=== PATIENT | male | born 1960 | race Hispanic/Latino ===

== ENCOUNTER 2019-01-18 19:17 | Emergency (ER) | payer OTHER ==
--- NOTE | 2019-01-18 22:43 | RAD ---
FExam: Chest 2 views HISTORY:Cough Comparison: None FINDINGS: Lungs: Patchy bilateral perihilar opacification Cardiac silhouette:Mildly enlarged Pulmonary vessels: Mild engorgement Pleural Spaces: Clear Pneumothorax: None Osseous abnormalities: None of acuity. IMPRESSION: Perihilar opacities may relate to edema from mild CHF, versus bronchiolitis. Correlate cl inically. Imaging follow-up may also be obtained.
== END 2019-01-18 23:31 | disposition home or self-care (01) ==
LOC: ERS 19:17 → EDBD 19:17 → ERS 23:31
DX: J06.9 Acute upper respiratory infection, unspecified (principal); I10 Essential (primary) hypertension
CPT/HCPCS: 71046; 94640; J7620

== ENCOUNTER 2021-02-23 19:10 | Inpatient (IN) | payer SELFPAY ==
[~2021-02-23 19:10] MED LIST: Iopamidol-370 76% 500 ML 1 ML ONE
[2021-02-23] MEDS ORDERED: hydrALAZINE 20 MG/ML VIAL ONE (20:03)
[2021-02-23 20:08] LABS: #Eosinphils 0.1 thou/uL (0.0-0.7); #Lymphocytes 1.5 thou/uL (1.20-3.40); #Monocytes 0.5 thou/uL (0.11-0.59); #Neutrophils 3.8 thou/uL (1.40-6.50); %Basophils 0.1 % (0.0-1.0); %Eosinophils 0.9 % (0.0-10.0); %Lymphocytes 25.2 % (21.0-51.0); %Monocytes 7.7 % (0.0-10.0); %Neutrophils 66.1 % (42.0-75.0); Hemoglobin 14.4 g/dL (14.0-18.0); Mean Corpuscular HGB CONC 33.7 g/dL (32.0-36.0); Mean Corpuscular Hemoglobin 30.8 pg (27.0-31.0); Mean Corpuscular Volume 91.4 fL (78.0-98.0); Mean Platelet Volume 7.8 fL (7.4-10.4); Platelet Count 197 thou/uL (130-400); RBC Distribution Width 12.9 % (11.5-14.5); Red Blood Cell (RBC) Count 4.68 mill/uL (4.70-6.10); White Blood Cell (WBC) Count 5.8 thou/uL (4.8-10.8)
[2021-02-23 20:35] LABS: ALT (SGPT) 30 U/L (8-55); AST (SGOT) 21 U/L (5-34); Albumin 3.7 g/dL (3.4-4.8); Alkaline Phosphatase 162 U/L (40-110); Anion Gap 12 mmol/L (10-20); BUN (Urea Nitrogen) 20 mg/dL (8.4-25.7); Bilirubin, Total 0.9 mg/dL (0.2-1.2); Calc. Creatinine Clearance 0 mL/min (70-130); Calcium 8.9 mg/dL (7.8-10.44); Carbon Dioxide 27 mmol/L (23-31); Chloride 106 mmol/L (98-107); Globulin 3.8 g/dL (2.4-3.5); Glucose 109 mg/dL (80-115); Potassium 3.9 mmol/L (3.5-5.1); Protein, Total 7.5 g/dL (5.8-8.1); Sodium 141 mmol/L (136-145)
[2021-02-23] MEDS ORDERED: Aspirin Chewable 81 MG TAB ONE (21:27)
[2021-02-23] MEDS ORDERED: Aspirin 325 MG TAB ONE (21:32)
[2021-02-23] MEDS ORDERED: hydrALAZINE 20 MG/ML VIAL SLOW IVP PRN (21:39)
[2021-02-23] MEDS ORDERED: Acetaminophen 325 MG TAB PO PRN (21:39)
[2021-02-23] MEDS ORDERED: Ondansetron PF 4 MG/2 ML Vial IVP PRN (21:39)
[2021-02-23] MEDS ORDERED: Ondansetron ODT 4 MG TAB PO PRN (21:39)
[2021-02-23 23:58] LABS: Troponin I 0.367 ng/mL (< 0.028)
[2021-02-24 01:08] LABS: Bacteria/HPF None Seen HPF (None Seen); Bilirubin Negative (Negative); Blood, Urine Negative (Negative); Clarity Clear (Clear); Glucose, Urine (Dipstick) Normal (Negative); Ketone, Urine 20 mg/dL (Negative); Leukocyte Negative Leu/uL (Negative); Nitrite Negative (Negative); Protein, Urine (Dipstick) 10 mg/dL (Neg-Trace); Squamous Epithelial None Seen HPF (0-3); Urobilinogen Normal mg/dL (Less than 2); pH, Urine 7.5 (5.0-9.0)
[2021-02-24 01:13] LABS: Specific Gravity, Urine 1.049 (1.002-1.036)
[2021-02-24 01:14] LABS: Urine Culture Reflex Yes Yes
[2021-02-24 01:15] LABS: Amphetamine Not Detected (NotDetected); Barbiturates Screen Not Detected (NotDetected); Benzodiazepine Screen Not Detected (NotDetected); Cocaine Metabolite Screen Not Detected (NotDetected); Medtox Control Line Valid? VALID (VALID); Medtox Reader # READER 4; Methadone Not Detected (NotDetected); Methamphetamine Not Detected (NotDetected); Opiate Screen Not Detected (NotDetected); Oxycodone Screen Not Detected (NotDetected); Phencyclidine (PCP) Not Detected (NotDetected); THC/Cannabinoid Screen Not Detected (NotDetected); Tricyclic Screen Not Detected (NotDetected)
[2021-02-24 02:02] VITALS: BMI 29.0
[2021-02-24 02:14] LABS: #Lymphocytes 0.9 thou/uL (1.20-3.40); #Monocytes 0.3 thou/uL (0.11-0.59); #Neutrophils 7.3 thou/uL (1.40-6.50); %Basophils 0.2 % (0.0-1.0); %Eosinophils 0.1 % (0.0-10.0); %Lymphocytes 10.8 % (21.0-51.0); %Monocytes 3.7 % (0.0-10.0); %Neutrophils 85.2 % (42.0-75.0); Hemoglobin 14.3 g/dL (14.0-18.0); Mean Corpuscular Hemoglobin 31.1 pg (27.0-31.0); Mean Corpuscular Volume 91.5 fL (78.0-98.0); Mean Platelet Volume 7.9 fL (7.4-10.4); Platelet Count 198 thou/uL (130-400); Red Blood Cell (RBC) Count 4.59 mill/uL (4.70-6.10); White Blood Cell (WBC) Count 8.6 thou/uL (4.8-10.8)
[2021-02-24 02:39] LABS: Anion Gap 14 mmol/L (10-20); BUN (Urea Nitrogen) 21 mg/dL (8.4-25.7); Calc. Creatinine Clearance 121 mL/min (70-130); Calcium 9.4 mg/dL (7.8-10.44); Carbon Dioxide 24 mmol/L (23-31); Cardiac Risk 4.8 (Less than 4.5); Chloride 105 mmol/L (98-107); Cholesterol 220 mg/dl (< 200 Desired); Glucose 117 mg/dL (80-115); HDL Cholesterol 46 mg/dL (>60 Neg Risk); LDL Cholesterol, Calculated 144 mg/dL; Potassium 3.5 mmol/L (3.5-5.1); Sodium 139 mmol/L (136-145); Triglycerides 149 mg/dL (Less than 150)
[2021-02-24 02:44] LABS: Troponin I 0.346 ng/mL (< 0.028)
[2021-02-24] MEDS ORDERED: Enoxaparin Sodium 40 MG/0.4 ML SYRINGE SC SCH ×2 (09:00)
[2021-02-24] MEDS ORDERED: Enoxaparin Sodium 80 MG/0.8 ML SYRINGE SC SCH (09:00)
[2021-02-24] MEDS: Aspirin 81 mg Enteric Coated Tablet PO SCH (09:11)
[2021-02-24] MEDS: Enoxaparin Sodium 40 MG/0.4 ML SYRINGE SC SCH (09:11)
[2021-02-24 14:25] LABS: SARS-CoV-2 PCR by NAA Not Detected (NotDetected)
[2021-02-24] MEDS: Atorvastatin Calcium 40 MG TAB PO SCH (20:53)
[2021-02-25] MEDS: Aspirin 81 mg Enteric Coated Tablet PO SCH (08:04)
[2021-02-25] MEDS: Enoxaparin Sodium 40 MG/0.4 ML SYRINGE SC SCH (08:04)
[2021-02-25] MEDS ORDERED: Amlodipine 5 MG TAB PO SCH ×2 (09:00→10:45)
[2021-02-25] MEDS ORDERED: Valsartan 80 MG TAB PO SCH (09:00)
[2021-02-25 11:19] LABS: Hemoglobin A1c 5.1 % (4.0-6.0)
[2021-02-25] MEDS ORDERED: Lisinopril/Hydrochlorothiazide 20 mg/12.5 mg Tablet PO SCH (14:15)
[2021-02-25] MEDS: Atorvastatin Calcium 40 MG TAB PO SCH (20:32)
[2021-02-26] MEDS: Aspirin 81 mg Enteric Coated Tablet PO SCH (08:10)
[2021-02-26] MEDS: Amlodipine 5 MG TAB PO SCH (08:10)
[2021-02-26] MEDS: Enoxaparin Sodium 40 MG/0.4 ML SYRINGE SC SCH (08:10)
[2021-02-26] MEDS ORDERED: Lisinopril/Hydrochlorothiazide 20 mg/12.5 mg Tablet PO SCH (09:00)
[2021-02-26] MEDS ORDERED: Lisinopril/Hydrochlorothiazide 10 mg/12.5 mg Tablet PO SCH (09:00)
[2021-02-26] MEDS ORDERED: Lisinopril 20 MG TAB PO SCH (10:15)
[2021-02-26] MEDS: hydrALAZINE 25 MG TAB PO SCH ×2 (15:27→21:01)
[2021-02-26] MEDS: Atorvastatin Calcium 40 MG TAB PO SCH (21:01)
[2021-02-27] MEDS: hydrALAZINE 25 MG TAB PO SCH (08:18)
[2021-02-27] MEDS: Aspirin 81 mg Enteric Coated Tablet PO SCH (08:18)
[2021-02-27] MEDS: Enoxaparin Sodium 40 MG/0.4 ML SYRINGE SC SCH (08:18)
[2021-02-27] MEDS: Amlodipine 5 MG TAB PO SCH (08:18)
[2021-02-27] MEDS ORDERED: Hydrochlorothiazide 25 MG TAB PO SCH (09:00)
[2021-02-27] MEDS ORDERED: Lisinopril 20 MG TAB PO SCH (09:00)
[2021-02-27] MEDS ORDERED: hydrALAZINE 25 MG TAB PO SCH ×2 (09:30→15:00)
[2021-02-27 11:34] VITALS: TEMP 98.2
[2021-02-27 15:26] VITALS: BP 151/70
== END 2021-02-27 19:33 | disposition home or self-care (01) | DRG 65 ==
LOC: ERS 19:10 → MERGE 21:20 → 2SE 21:20
PROVIDERS: ADMIT Student in an Organized Health Care Education/Training Program; ATTEND Internal Medicine
DX: I63.512 Cerebral infarction due to unspecified occlusion or stenosis of left middle cerebral artery (principal); I16.1 Hypertensive emergency; G81.91 Hemiplegia, unspecified affecting right dominant side; G93.49 Other encephalopathy; I24.8 Other forms of acute ischemic heart disease; I63.522 Cerebral infarction due to unspecified occlusion or stenosis of left anterior cerebral artery; I10 Essential (primary) hypertension; Z20.822 Contact with and (suspected) exposure to COVID-19; F41.9 Anxiety disorder, unspecified; R29.706 NIHSS score 6; R47.01 Aphasia; E78.00 Pure hypercholesterolemia, unspecified; Z91.14 Patient's other noncompliance with medication regimen
CPT/HCPCS: 36415; 36416; 70450; 70496; 70498; 70551; 80048; 80053; 80061; 80306; 81001; 82553; 83036; 83605; 83880; 84484; 85025; 87086; 87635; 93005; 93306; 96374; J0360; J1650; Q9967; U0003; U0005

== ENCOUNTER 2021-02-28 21:08 | Inpatient (IN) | payer OTHER, SELFPAY ==
[2021-02-28 22:01] LABS: #Eosinphils 0.1 thou/uL (0.0-0.7); #Lymphocytes 1.6 thou/uL (1.20-3.40); #Monocytes 0.9 thou/uL (0.11-0.59); #Neutrophils 8.6 thou/uL (1.40-6.50); %Eosinophils 0.8 % (0.0-10.0); %Lymphocytes 14.6 % (21.0-51.0); %Monocytes 8.2 % (0.0-10.0); %Neutrophils 76.3 % (42.0-75.0); Hemoglobin 15.8 g/dL (14.0-18.0); Mean Corpuscular HGB CONC 33.7 g/dL (32.0-36.0); Mean Corpuscular Hemoglobin 30.9 pg (27.0-31.0); Mean Corpuscular Volume 91.8 fL (78.0-98.0); Mean Platelet Volume 8.4 fL (7.4-10.4); Platelet Count 227 thou/uL (130-400); RBC Distribution Width 13.2 % (11.5-14.5); White Blood Cell (WBC) Count 11.2 thou/uL (4.8-10.8)
[2021-02-28 22:33] LABS: ALT (SGPT) 43 U/L (8-55); Albumin 4.1 g/dL (3.4-4.8); Alkaline Phosphatase 160 U/L (40-110); Anion Gap 18 mmol/L (10-20); BUN (Urea Nitrogen) 50 mg/dL (8.4-25.7); Calc. Creatinine Clearance 0 mL/min (70-130); Calcium 9.6 mg/dL (7.8-10.44); Carbon Dioxide 20 mmol/L (23-31); Chloride 102 mmol/L (98-107); Globulin 4.2 g/dL (2.4-3.5); Glucose 114 mg/dL (80-115); Potassium 3.8 mmol/L (3.5-5.1); Protein, Total 8.3 g/dL (5.8-8.1); Sodium 136 mmol/L (136-145)
[2021-02-28] MEDS ORDERED: Aspirin 325 MG TAB ONE (23:02)
[2021-02-28 23:41] LABS: AST (SGOT) 32 U/L (5-34)
[2021-03-01] MEDS ORDERED: Enoxaparin Sodium 80 MG/0.8 ML SYRINGE ONE (00:33)
[2021-03-01] MEDS ORDERED: Ondansetron PF 4 MG/2 ML Vial IVP PRN (01:00)
[2021-03-01] MEDS ORDERED: Ondansetron ODT 4 MG TAB SL PRN (01:00)
[2021-03-01 02:02] VITALS: BMI 25.5
[2021-03-01 02:07] LABS: Troponin I 5.151 ng/mL (< 0.028)
[2021-03-01] MEDS ORDERED: Acetaminophen 325 MG TAB PO PRN (03:17)
[2021-03-01 05:26] LABS: #Lymphocytes 0.9 thou/uL (1.20-3.40); #Monocytes 0.7 thou/uL (0.11-0.59); #Neutrophils 7.8 thou/uL (1.40-6.50); %Eosinophils 0.3 % (0.0-10.0); %Lymphocytes 9.3 % (21.0-51.0); %Monocytes 7.2 % (0.0-10.0); %Neutrophils 83.1 % (42.0-75.0); Hemoglobin 14.6 g/dL (14.0-18.0); Mean Corpuscular Hemoglobin 30.3 pg (27.0-31.0); Mean Corpuscular Volume 91.7 fL (78.0-98.0); Mean Platelet Volume 8.5 fL (7.4-10.4); Platelet Count 209 thou/uL (130-400); RBC Distribution Width 13.4 % (11.5-14.5); Red Blood Cell (RBC) Count 4.81 mill/uL (4.70-6.10); White Blood Cell (WBC) Count 9.4 thou/uL (4.8-10.8)
[2021-03-01 06:42] LABS: Anion Gap 18 mmol/L (10-20); BUN (Urea Nitrogen) 60 mg/dL (8.4-25.7); Calc. Creatinine Clearance 33 mL/min (70-130); Calcium 9.4 mg/dL (7.8-10.44); Carbon Dioxide 22 mmol/L (23-31); Chloride 103 mmol/L (98-107); Glucose 114 mg/dL (80-115); Sodium 139 mmol/L (136-145)
[2021-03-01 09:02] LABS: Critical Call Chem Troponin I RESULT DECREASING; Troponin I 4.521 ng/mL (< 0.028)
[2021-03-01] MEDS: Aspirin 81 mg Enteric Coated Tablet PO SCH (09:03)
[2021-03-01 10:20] LABS: Bacteria/HPF None Seen HPF (None Seen); Bilirubin Negative (Negative); Blood, Urine Negative (Negative); Clarity Turbid (Clear); Glucose, Urine (Dipstick) Normal (Negative); Ketone, Urine Negative (Negative); Leukocyte Negative Leu/uL (Negative); Nitrite Negative (Negative); Protein, Urine (Dipstick) 20 mg/dL (Neg-Trace); RBC/HPF 0-3 HPF (0-3); Specific Gravity, Urine 1.019 (1.002-1.036); Squamous Epithelial None Seen HPF (0-3); Urobilinogen Normal mg/dL (Less than 2); WBC/HPF 0-3 HPF (0-3)
[2021-03-01 10:22] LABS: Urine Culture Reflex No No
[2021-03-01] MEDS: Atorvastatin Calcium 40 MG TAB PO SCH (22:02)
[2021-03-02 05:51] LABS: #Eosinphils 0.1 thou/uL (0.0-0.7); #Lymphocytes 1.9 thou/uL (1.20-3.40); #Monocytes 0.8 thou/uL (0.11-0.59); #Neutrophils 6.4 thou/uL (1.40-6.50); %Basophils 0.4 % (0.0-1.0); %Lymphocytes 20.5 % (21.0-51.0); %Monocytes 8.8 % (0.0-10.0); %Neutrophils 69.3 % (42.0-75.0); Hemoglobin 16.4 g/dL (14.0-18.0); Mean Corpuscular HGB CONC 31.6 g/dL (32.0-36.0); Mean Corpuscular Hemoglobin 29.5 pg (27.0-31.0); Mean Corpuscular Volume 93.4 fL (78.0-98.0); Mean Platelet Volume 8.7 fL (7.4-10.4); Platelet Count 198 thou/uL (130-400); RBC Distribution Width 13.7 % (11.5-14.5); Red Blood Cell (RBC) Count 5.55 mill/uL (4.70-6.10); White Blood Cell (WBC) Count 9.2 thou/uL (4.8-10.8)
[2021-03-02] MEDS: hydrALAZINE 20 MG/ML VIAL SLOW IVP PRN (07:46)
[2021-03-02] MEDS: Aspirin 81 mg Enteric Coated Tablet PO SCH (07:49)
[2021-03-02] MEDS: Clopidogrel Bisulfate 75 MG TAB PO SCH (07:49)
[2021-03-02 11:07] LABS: Calcium 10.1 mg/dL (7.8-10.44); Chloride 103 mmol/L (98-107); Glucose 120 mg/dL (80-115); Potassium 4.4 mmol/L (3.5-5.1); Sodium 142 mmol/L (136-145)
[2021-03-02 11:09] LABS: Anion Gap 12 mmol/L (10-20); Carbon Dioxide 31 mmol/L (23-31)
[2021-03-02 11:12] LABS: BUN (Urea Nitrogen) 63 mg/dL (8.4-25.7)
[2021-03-02 11:46] LABS: Calc. Creatinine Clearance 76 mL/min (70-130)
[2021-03-02] MEDS: Atorvastatin Calcium 40 MG TAB PO SCH (21:51)
[2021-03-03] MEDS: Ondansetron PF 4 MG/2 ML Vial IVP PRN ×2 (02:44→20:29)
[2021-03-03 05:34] LABS: #Lymphocytes 1.3 thou/uL (1.20-3.40); #Monocytes 0.8 thou/uL (0.11-0.59); #Neutrophils 7.8 thou/uL (1.40-6.50); %Basophils 0.3 % (0.0-1.0); %Eosinophils 0.5 % (0.0-10.0); %Lymphocytes 13.1 % (21.0-51.0); %Monocytes 7.7 % (0.0-10.0); %Neutrophils 78.4 % (42.0-75.0); Hemoglobin 15.5 g/dL (14.0-18.0); Mean Corpuscular HGB CONC 31.5 g/dL (32.0-36.0); Mean Corpuscular Volume 95.4 fL (78.0-98.0); Mean Platelet Volume 9.2 fL (7.4-10.4); Platelet Count 180 thou/uL (130-400); RBC Distribution Width 13.6 % (11.5-14.5); Red Blood Cell (RBC) Count 5.16 mill/uL (4.70-6.10); White Blood Cell (WBC) Count 9.9 thou/uL (4.8-10.8)
[2021-03-03 05:52] LABS: Anion Gap 11 mmol/L (10-20); BUN (Urea Nitrogen) 53 mg/dL (8.4-25.7); Calc. Creatinine Clearance 87 mL/min (70-130); Calcium 10.2 mg/dL (7.8-10.44); Carbon Dioxide 31 mmol/L (23-31); Chloride 104 mmol/L (98-107); Glucose 116 mg/dL (80-115); Potassium 4.3 mmol/L (3.5-5.1); Sodium 142 mmol/L (136-145)
[2021-03-03] MEDS: Aspirin 81 mg Enteric Coated Tablet PO SCH (09:06)
[2021-03-03] MEDS: Clopidogrel Bisulfate 75 MG TAB PO SCH (09:06)
[2021-03-03] MEDS ORDERED: Amlodipine 5 MG TAB PO SCH (12:45)
[2021-03-03] MEDS: hydrALAZINE 20 MG/ML VIAL SLOW IVP PRN (17:33)
[2021-03-03] MEDS: Atorvastatin Calcium 40 MG TAB PO SCH (20:29)
[2021-03-03] MEDS: Docusate 100 MG CAP PO SCH (20:29)
[2021-03-03] MEDS ORDERED: Lorazepam 2 MG/ML VIAL SLOW IVP SCH (21:15)
[2021-03-04] MEDS: Docusate 100 MG CAP PO SCH ×2 (08:39→20:21)
[2021-03-04] MEDS: Clopidogrel Bisulfate 75 MG TAB PO SCH (08:39)
[2021-03-04] MEDS: Aspirin 81 mg Enteric Coated Tablet PO SCH (08:39)
[2021-03-04] MEDS ORDERED: Amlodipine 5 MG TAB PO SCH (09:00)
[2021-03-04] MEDS ORDERED: Enoxaparin Sodium 40 MG/0.4 ML SYRINGE SC SCH (10:15)
[2021-03-04] MEDS: Atorvastatin Calcium 40 MG TAB PO SCH (20:21)
[2021-03-04] MEDS: Amlodipine 5 MG TAB PO SCH (20:21)
[2021-03-04] MEDS: hydrALAZINE 20 MG/ML VIAL SLOW IVP PRN (23:40)
[2021-03-05] MEDS ORDERED: Lorazepam 2 MG/ML VIAL SLOW IVP SCH (00:45)
[2021-03-05] MEDS: Clopidogrel Bisulfate 75 MG TAB PO SCH (08:31)
[2021-03-05] MEDS: Polyethylene Glycol 3350 17 GM Packet PER TUBE SCH (08:31)
[2021-03-05] MEDS: Enoxaparin Sodium 40 MG/0.4 ML SYRINGE SC SCH (08:31)
[2021-03-05] MEDS: Docusate 100 MG CAP PO SCH ×2 (08:31→21:18)
[2021-03-05] MEDS: Amlodipine 5 MG TAB PO SCH ×2 (08:31→21:18)
[2021-03-05] MEDS: Aspirin 81 mg Enteric Coated Tablet PO SCH (08:31)
[2021-03-05] MEDS ORDERED: PARoxetine 20 MG TAB PO SCH (09:00)
[2021-03-05] MEDS ORDERED: Fleet Enema 133 ML BOT PR PRN (16:59)
[2021-03-05] MEDS ORDERED: Bisacodyl 5 MG TAB PO PRN (16:59)
[2021-03-05] MEDS ORDERED: Bisacodyl 10 MG SUPP PR PRN (16:59)
[2021-03-05] MEDS ORDERED: ALPRAZolam 0.25 MG TAB PO SCH (21:00)
[2021-03-05] MEDS: Atorvastatin Calcium 40 MG TAB PO SCH (21:18)
[2021-03-06] MEDS: PARoxetine 20 MG TAB PO SCH (10:19)
[2021-03-06] MEDS: Docusate 100 MG CAP PO SCH ×2 (10:19→21:45)
[2021-03-06] MEDS: Aspirin 81 mg Enteric Coated Tablet PO SCH (10:19)
[2021-03-06] MEDS: Polyethylene Glycol 3350 17 GM Packet PER TUBE SCH (10:19)
[2021-03-06] MEDS: Clopidogrel Bisulfate 75 MG TAB PO SCH (10:19)
[2021-03-06] MEDS: Enoxaparin Sodium 40 MG/0.4 ML SYRINGE SC SCH (10:19)
[2021-03-06] MEDS: Amlodipine 5 MG TAB PO SCH ×2 (10:19→21:44)
[2021-03-06] MEDS: Atorvastatin Calcium 40 MG TAB PO SCH (21:44)
[2021-03-07] MEDS: Polyethylene Glycol 3350 17 GM Packet PER TUBE SCH (09:26)
[2021-03-07] MEDS: Aspirin 81 mg Enteric Coated Tablet PO SCH (09:26)
[2021-03-07] MEDS: Docusate 100 MG CAP PO SCH (09:26)
[2021-03-07] MEDS: Enoxaparin Sodium 40 MG/0.4 ML SYRINGE SC SCH (09:26)
[2021-03-07] MEDS: Amlodipine 5 MG TAB PO SCH (09:27)
[2021-03-07] MEDS: Clopidogrel Bisulfate 75 MG TAB PO SCH (09:27)
[2021-03-07] MEDS: PARoxetine 20 MG TAB PO SCH (09:27)
[2021-03-07 11:35] VITALS: TEMP 98.2
[2021-03-07 16:50] VITALS: BP 123/59
== END 2021-03-07 16:59 | disposition home or self-care (01) | DRG 64 ==
LOC: ERS 21:08 → 2SE 23:47 → OBSVTOIN 03-01 12:18
PROVIDERS: ADMIT Internal Medicine; ATTEND Internal Medicine
DX: I63.9 Cerebral infarction, unspecified (principal); I21.A1 Myocardial infarction type 2; I16.1 Hypertensive emergency; N17.9 Acute kidney failure, unspecified; G81.91 Hemiplegia, unspecified affecting right dominant side; I50.32 Chronic diastolic (congestive) heart failure; I11.0 Hypertensive heart disease with heart failure; R77.8 Other specified abnormalities of plasma proteins; F32.9 Major depressive disorder, single episode, unspecified; E11.9 Type 2 diabetes mellitus without complications; E78.00 Pure hypercholesterolemia, unspecified; Z91.14 Patient's other noncompliance with medication regimen
CPT/HCPCS: 36415; 36416; 70450; 70551; 71045; 80048; 80053; 82553; 83605; 84484; 85025; 85379; 90471; 90732; 93005; 93306; 95816; 95819; 96372; 96374; G0009; G0378; J0360; J1650; J2060; J2405